=== PATIENT | male | born 1975 | race Caucasian/White ===

== ENCOUNTER 2023-03-05 09:41 | Outpatient (CLI) | payer OTHER | END 2023-03-05 09:42 | disposition home or self-care (01) | LOC: DI 09:41 | PROVIDERS: ATTEND Student in an Organized Health Care Education/Training Program | DX: R07.89 Other chest pain (principal); I34.0 Nonrheumatic mitral (valve) insufficiency | CPT/HCPCS: 93306 ==

== ENCOUNTER 2024-03-01 15:29 | Outpatient (CLI) | payer OTHER ==
--- NOTE | 2024-03-01 16:08 | Sleep Patient Instructions ---
Sleep Center Visit Summary - Patient Visit Information Reason for Visit: Initial consult for evaluation of sleep disordered breathing and other sleep issues. - Patient Instructions Instructions Attached: Sleep Study Additional Instructions: You will be completing a sleep study, either an in-lab polysomnography (PSG) or home sleep study (HST). You will follow-up in the sleep care office after the sleep study is completed to hear the results and talk about therapy, if needed. You will be called by our office staff to schedule this appointment, but you may contact us with any questions. - Clinic Information Contact: [facility] [address] [place] [address] [email or web address] T: [phone]
--- NOTE | 2024-03-01 16:12 | SLEEP CARE CONSULTATION ---
Information from patient questionnaire entered by Milad Meredith. I have reviewed and concur with the information entered by Milad Meredith. This document represents the service I personally performed and the decisions made by me, Fay Dumont ARNP. History of Present Illness Service Date and Time: 03/01/2024 1529 Reason for Visit: New patient Chief Complaint: reports: Snoring, Fatigue, Frequent awakenings at night. denies: Unrefreshed sleep Date of Onset: Snoring since a child, fatigue/frequent awakenings for 10 years Usual bedtime: 1000 - 1100 Time it takes to fall asleep: < 10 min Snores at night: Yes (Sometimes) Observed to quit breathing while asleep: No Sleeps alone due to snoring: No Number of times waking at night: 4 - 7 Reasons for waking at night: reports: Snoring, Pain, Bathroom, Other (Unknown reason). denies: Choking, Gasping for air Toss, Turn, or Twitch while sleeping: Yes Recalls having dreams: Yes (Sometimes) Usually gets out of bed at: 0500 - 0600; weekends betw 7-8 am Feels refreshed in the morning: No Morning headache: Yes (1 time a week, last about 2 hours; Sometimes - more frequent recently) Sleepy or fatigued during the day: Yes Ever fallen asleep while driving: Yes (drowsy driving; no accidents) Takes day naps: No Dreams during day naps: No (Unknown) Prior sleep studies: No Additional HPI information: I had the pleasure of seeing NEO LLANES today regarding the possibility of him having a sleep disorder. His current complaints are fatigue, frequent night awakenings and snoring. He has snored since he was a child. He says he has no trouble initially getting to sleep but he will wake up frequently. He will sometimes have a hard time getting back to sleep. He has not had anyone tell him he stopped breathing at night. He has woke himself up with his snoring. He wakes up with a headache about once a week that lasts about 2 hours. He does get fatigued during the daytime and has experienced drowsy driving. He does not take naps because this makes it harder for him to go to sleep at night. 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 Patient is and lives in [place] Have you smoked in the past 12 months: No Alcohol use: Yes Alcohol amount and frequency: 1 - 2 drinks, 2 - 3 times per week Caffeine use: Yes Caffeine amount and frequency: Rarely Family History Family history of sleep disordered breathing: Yes Family Hx Sleep Apnea: Mother: Sleep apnea - Treated, Grandparent: Snoring, Sleep apnea - Treated Allergies and Home Medications Known drug allergies: No Drug allergies reviewed: Yes Home medication list reviewed: Yes (as listed) Allergy and home medication list: Allergies No Known Drug Allergies Allergy (Verified 03/01/24 16:02) Home Medications Mobic See Rx Instructions .ROUTE .COMPLEX 03/01/24 [History] Review of Systems Weight gain over past 5 years: 0 Weight loss over past 5 years: 0 Cardiovascular: denies: high blood pressure Gastrointestinal: denies: heartburn Neurological: reports: headaches Psychiatric: denies: anxiety, depression Ear/Nose/Throat: reports: wisdom teeth removed. denies: tonsillectomy Musculoskeletal: reports: joint pain (/stiffness), joint swelling Immunologic: denies: allergies to food or environment Physical Exam Vital signs obtained and entered by: Fay Sandoval NP Blood Pressure: 128/81 Cuff size: wrist (right) Heart Rate: 65 O2 Saturation: 97 Height: 5 ft 10 in Weight: 182 lb Body Mass Index: 26.1 BMI Classification: Overweight Neck circumference: 14.5 (inches) Mouth and throat: narrow oropharynx Soft palate: long Hard palate: normal Uvula: normal Uvula visualization: 25% Mallampati Class III Tongue: enlarged in size with teeth pena on lateral edges Tonsils: 2+ Neck: normal w/o lymphadenopathy or thyromegaly Heart: regular rate and rhythm Lungs: clear bilaterally Impression and Plan 1. Suspected Obstructive Sleep Apnea-Hypopnea Syndrome, as suggested by a history of irregular snoring, morning headache, frequent awakening during the night and unrefreshed sleep. Narrow oropharynx and obesity are common predisposing factors for obstructive sleep apnea-hypopnea syndrome. I recommend proceeding to polysomnography to confirm the diagnosis and to assess severity. If the patient has significant sleep disordered breathing, a manual CPAP titration study will also be performed to find the optimal treatment pressure. I informed the patient of what the sleep studies involve and after some discussion, obtained agreement to proceed. The pathophysiology of obstructive sleep apnea-hypopnea syndrome was discussed with the patient and health risks of cardiovascular and cerebrovascular disease if not treated. Risks of drowsy driving discussed in detail and patient advised to avoid long distance driving and to tack puller at the first sign of drowsiness. Patient agreed to plan. * Schedule polysomnography. * Avoid long distance driving or driving when feeling sleepy. * Avoid alcohol, sedative and muscle relaxant around bedtime. * Attempt to lose weight. * Review instructions provided by trained office staff on how to prepare for the sleep study. * Return for follow-up after sleep study completed. Counseling Topics: Weight loss health impact Plan: PSG and followup Visit Type: In Office Time Spent with Patient (minutes): 30 Provider Statement: I spent 100% of the Face to Face Visit with the patient with greater than 50% spent counseling the patient and coordination of care.
[2024-03-01 16:18] VITALS: BP 128/81; O2SAT 97
== END 2024-03-01 15:30 | disposition home or self-care (01) ==
LOC: SC 15:29
PROVIDERS: ATTEND Nurse Practitioner Family
DX: R06.83 Snoring (principal); R51.9 Headache, unspecified; G47.8 Other sleep disorders
CPT/HCPCS: 99203; 99212

== ENCOUNTER 2024-04-03 20:40 | Outpatient (CLI) | payer OTHER | END 2024-04-03 20:41 | disposition home or self-care (01) | LOC: SC 20:40 | PROVIDERS: ATTEND Nurse Practitioner Family | DX: R06.83 Snoring (principal); G47.8 Other sleep disorders; R53.83 Other fatigue; E66.3 Overweight; Z68.26 Body mass index [BMI] 26.0-26.9, adult | CPT/HCPCS: 95810 ==

== ENCOUNTER 2024-05-02 08:13 | Outpatient (CLI) | payer OTHER ==
--- NOTE | 2024-05-02 08:42 | Sleep Patient Instructions ---
Sleep Center Visit Summary - Patient Visit Information Reason for Visit: Sleep study follow-up - Patient Instructions Additional Instructions: Your sleep study today was negative for significant sleep disordered breathing. However, you did have elevated respiratory episodes when sleeping on your back. You should avoid sleeping on your back to control these respiratory episodes. You were found to have episodes of snoring. There are different ways to control snoring including weight loss, oral devices made by a dentist or surgical options through ENT specialist. You should not use oral devices that do not fit properly because they can affect your bite. You should also check insurance coverage of oral devices for snoring because they may not be cover well. You may obtain a referral to an ENT specialist through your primary provider. Follow-up as needed. - Clinic Information Contact: [facility] [address] [place] [address] [email or web address] T: [phone]
--- NOTE | 2024-05-02 08:44 | SLEEP CARE CONSULTATION ---
Information from patient questionnaire entered by Stefanie Ball. I have reviewed and concur with the information entered by Stefanie Ball. This document represents the service I personally performed and the decisions made by , Fay Dumont ARNP. History of Present Illness Service Date and Time: 05/02/2024812 Initial [place] Sleepiness Scale score: 6 (in 2023) Current [place] Sleepiness Scale score: 6 (05/02/24) Additional HPI information: NEO LLANES returns for follow up and results of the recently performed polysomnography. The patient was informed of the following findings: No significant sleep disordered breathing with an average AHI of 2.3 and morelia oxygen saturation of 89%. His supine AHI was elevated at 9.1. I explained the pathophysiology behind obstructive sleep apnea. Patient does not have sleep apnea and was advised how weight gain could increase the risk of developing sleep apnea in the future. I strongly encouraged the patient to lose weight. Patient does not have significant sleep disordered breathing but has elevated AHI in supine position so advised positional therapy. Methods to achieve positional management therapy were discussed; such as, positioning with pillows, wearing a T-shirt with tennis balls sewn into the back or commercially available products. Patient has light snoring. Snoring can be reduced by weight loss. Snoring can also be treated with an oral appliance from a dentist. Advised to check insurance coverage. In addition, an ENT evaluation can be do to see if other treatment is indicated. Patient counseled not drink alcohol less than 4 hours before bedtime as it can increase snoring and apnea. Patient was cautioned about risks of drowsy driving until sleepiness symptoms resolve. Patient denies drowsy driving. Sleep Study - Results Type of Sleep Study: Polysomnography (COMPLETED 04/03/24) Prior sleep studies: No Polysomnography/Home Sleep Study results: IMPRESSION: The quality of the study is good. The patient had minimally reduced sleep efficiency. The sleep architecture was abnormal for sleep fragmentation and reduced amount of time spent in slow wave sleep (N3). Respiratory monitoring showed no significant sleep-disordered breathing (AHI = 2.3) or hypoxia (morelia oxygen saturation of 89%). The few respiratory events occurred only during supine sleep (supine AHI = 9.1; non-supine = 0.00). Snore was infrequent and light in intensity. There was no significant periodic leg movement of sleep. Cardiac rhythm was normal sinus rhythm without significant arrhythmia. No abnormal behavior (parasomnia) observed during the night. CONCLUSIONS and RECOMMENDATIONS: 1. This is a normal in-laboratory polysomnography. However, because the supine A HI was elevated at 9.1, the patient should avoid sleeping supine. Clinical correlation advised. Allergies and Home Medications Known drug allergies: No Drug allergies reviewed: Yes Home medication list reviewed: Yes (no changes) Allergy and home medication list: Allergies No Known Drug Allergies Allergy (Verified 04/28/24 12:00) Review of Systems Review of systems same as previous: Yes (NO CHANGE) Physical Exam Vital signs obtained and entered by: STEFANIE Bhandari MA Blood Pressure: 134/83 (LEFT ARM) Cuff size: regular Heart Rate: 54 O2 Saturation: 99 Height: 5 ft 10 in Weight: 184 lb 6.4 oz Body Mass Index: 26.4 BMI Classification: Overweight Impression and Plan 1. Snoring but no significant sleep disordered breathing. However, patient does have elevated supine AHI and should avoid sleeping supine to control mild positional sleep apnea. Patient advised that often weight loss will reduce snoring as well as apnea risk. An oral appliance can also be used for snoring. This would require a dental consultation. Patient cautioned not to use other online appliances as can cause bite issues. Patient is advised to check if insurance will cover. An ENT consult can also be helpful to determine if any other treatment is an option. 2. Overweight, unspecified. Currently patients BMI is 26.4. Obesity increases the risk of apnea, CPAP pressure requirements and overall health risks especially cardiovascular and diabetes. Thus patient is advised to maintain a healthy weight. * Avoid sleeping supine * Maintain healthy weight * Avoid alcohol consumption near bedtime * The patient is cautioned about driving until sleepiness is completely resolved. * Return as needed for follow up. Counseling Topics: Sleeping position, Weight loss health impact Follow up with Sleep Care in: as needed Plan: Avoid sleeping supine and follow up as needed Visit Type: In Office Time Spent with Patient (minutes): 11 Provider Statement: I spent 100% of the Face to Face Visit with the patient with greater than 50% spent counseling the patient and coordination of care.
[2024-05-02 08:45] VITALS: BP 134/83; O2SAT 99
== END 2024-05-02 08:14 | disposition home or self-care (01) ==
LOC: SC 08:13
PROVIDERS: ATTEND Nurse Practitioner Family
DX: R06.83 Snoring (principal); E66.3 Overweight; Z68.26 Body mass index [BMI] 26.0-26.9, adult
CPT/HCPCS: 99212